=== PATIENT | female | born 1995 | race Caucasian/White ===

== ENCOUNTER 2018-08-19 01:13 | Emergency (ER) | payer OTHER ==
[~2018-08-19] VITALS: Ht 157.5 cm; Wt 54.4 kg
[2018-08-19] VITALS (8 sets, daily range): BP systolic 106–127; BP diastolic 50–97
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
--- NOTE | 2018-08-19 02:19 | NUR ---
RESTROOM PATIENT TAKEN TO RESTROOM VIA WHEELCHAIR BY JACKET CHANGER.
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
--- NOTE | 2018-08-19 03:06 | DIREP ---
PROCEDURE:CT HEAD WITHOUT CONTRAST TECHNIQUE:Axial cuts were obtained through the head, without intravenous contrast material. The images were viewed at brain and bone settings. COMPARISON:None. INDICATIONS:trauma FINDINGS: VENTRICLES:Normal. CEREBRUM:Normal. CEREBELLUM:Normal. BRAINSTEM:Normal. SKULL:Normal. SINUSES:Normal. OTHER:Right frontal scalp hematoma. CONCLUSION:Right frontal scalp hematoma. No depressed skull fracture. No intracranial hemorrhage detected Dictated by: Maegan Huang MD on 08/19/2018 at 03:04 AM
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
--- NOTE | 2018-08-19 03:18 | NUR ---
RESTROOM PT AMBULATED TO RESTROOM, ATTEMPT TO VOID UNSUCCESSFUL.
[2018-08-19] MEDS ORDERED: ULTRAM PO STA (03:40)
[2018-08-19] MEDS ORDERED: ULTRAM ONE (04:05)
== END 2018-08-19 04:00 | disposition home or self-care (01) ==
LOC: ER 01:13
DX: S63.602A Unspecified sprain of left thumb, initial encounter (principal); S00.03XA Contusion of scalp, initial encounter; S00.83XA Contusion of other part of head, initial encounter; Y30.XXXA Falling, jumping or pushed from a high place, undetermined intent, initial encounter; Y93.39 Activity, other involving climbing, rappelling and jumping off; Y92.488 Other paved roadways as the place of occurrence of the external cause; Y99.8 Other external cause status
CPT/HCPCS: 70450; 72125; 99285; 73130-LT